=== PATIENT | female | born 1990 | race Caucasian/White ===

== ENCOUNTER 2025-04-16 18:04 | Emergency (ER) | payer BC, SELFPAY ==
[2025-04-16 18:06] VITALS: BP 140/70
[2025-04-16 18:12] VITALS: BMI 29.1
[2025-04-16 18:37] LABS: Hematocrit 39.7 % (37.0-47.0); Hemoglobin 13.2 g/dL (12.0-16.0); Mean Corp Hgb Conc. 33.2 g/dL (33.0-37.0); Mean Corpuscular Volume 86.7 fL (81.0-99.0); Nucleated Red Blood Cells % 0 %; Platelet Count 208 10^3/uL (130-400); Red Cell Dist. Width 12.0 % (11.5-14.5)
[2025-04-16] MEDS: TYLENOL 1000 MG PO (18:39)
[2025-04-16 19:23] LABS: ALT (SGPT) 19 U/L (0-35); AST (SGOT) 21 U/L (14-36); Albumin 4.7 g/dl (3.5-5.0); Alkaline Phosphatase 39 U/L (38-126); Blood Urea Nitrogen 16 mg/dl (7-17); Calcium 9.6 mg/dl (8.4-10.2); Carbon Dioxide 25 mmol/L (22-30); Chloride 102 mmol/L (98-107); Estimated Creatinine Clearance 81 ml/min; Glucose 85 mg/dl (70-99); Potassium 3.8 mmol/L (3.5-5.1); Sodium 133 mmol/L (135-145); Total Protein 7.4 g/dl (6.3-8.2); eGFR > 60.00
--- NOTE | 2025-04-16 19:23 | ED.GENMED ---
History of Present Illness
General
Chief Complaint: Problems
Time Seen by Provider: 04/16/25 18:23
History of Present Illness
History of Present Illness:
34-year-old female, G2, P1 currently 20 weeks gestational age presents to the emergency department for evaluation of lower abdominal pain that is gradually worsened throughout the day today. Constant pain, nonradiating, with no associated fever,
chills, or sweats. No vomiting or diarrhea. Denies any lower urinary tract voiding symptoms. Prior abdominal surgical history includes appendectomy. First was uneventful. She did already undergo a confirmation ultrasound confirming
[facility] within the past 2 to 3 weeks.
Past History
Past History
ED Past Medical History: None
Social History
Tobacco: Non-smoker
Alcohol: Occasional
Drug: None
Personal: Single
Living: with family
Employment: Employed
Review of Systems
Review of Systems
Allergies reviewed?: Yes
All Other Systems: ROS reviewed and negative except as documented in HPI and ROS
Phy Exam
Physical Exam
Physical Exam:
GEN: Well appearing, NAD, WDWN
HEENT: Oral mucosa moist, no scleral icterus
Cardiac: Regular rate
Lung: No respiratory distress, no tachypnea
Abdomen: Soft, mild right lower quadrant and suprapubic tenderness, no rigidity or peritoneal signs
MSK: No gross deformity or injuries
Skin: Good color, no pallor or jaundice, no rashes
Neuro: AO x3, moves all extremities freely
Psych: Calm, cooperative
Course
Orders/Labs/Results
Orders:
Orders
04/16/25 18:11
US 1st Trimester Urgent
Comment:
Reason For Exam: 12wks preg abd pain no vag blding
04/16/25 18:23
Complete Blood Count/With Diff Urgent
Comprehensive Metabolic Panel Urgent
HCG, Beta Quantitative [Beta HCG Quantitative] Urgent
Is this a screen?: No
04/16/25 18:37
Acetaminophen [Tylenol] 1,000 mg PO NOW STA
04/16/25 18:39
Acetaminophen [Tylenol] 1,000 mg .ROUTE .STK-MED ONE
04/16/25 19:28
Urinalysis Reflex To Culture Urgent
Date Specimen was Collected: 04/16/25
Time Specimen was Collected: :
Urine Microscopic Reflex Cult Urgent
Urine Culture Urgent
ISELA Source: U
Specimen Description:
Date Specimen was Collected: 04/16/25
Time Specimen was Collected: :
Abnormal Lab Results
04/16/25 04/16/25
18:23 19:28
Sodium 133 L mmol/L
(135-145)
Leukocyte Esterase Rfl 2+ A
(Negative)
04/16/25 18:23
04/16/25 18:23
Vital Signs
Initial and Last Documented VS:
Initial Vital Signs
Temp Pulse Resp BP Pulse Ox
98.0 F 62 16 140/70 98
04/16/25 18:06 04/16/25 18:06 04/16/25 18:06 04/16/25 18:06 04/16/25 18:06
Last Documented Vital Signs
Temp Pulse Resp BP Pulse Ox
98.0 F 62 16 140/70 98
04/16/25 18:06 04/16/25 18:06 04/16/25 18:06 04/16/25 18:06 04/16/25 19:24
Information
Weeks gestation: Weeks: (12)
Location: Location: ([facility])
MDM/Problems Addressed
MDM/Problems Addressed:
Patient's ultrasound is reassuring with good activity and good heart tones. Labs otherwise unremarkable. Urinalysis does have leukocytes however she has no lower urinary tract voiding symptoms thus we will hold off on antibiotics unless
urine culture is positive. No indication for further imaging at this time as Tylenol did greatly improve pain
*Pulse Oximetry
SaO2: 98
Oxygen Mode of Delivery: Room air
Patient hypoxic: no
*Critical Care Note
Total Time (30-74mins, 75-104mins- exclusive of procedures): Not Applicable
ED Attending Note
-
Portions of this chart may have been created with voice recognition software.� Occasional wrong word or��sound alike� substitutions may have occurred due to the inherent limitations of voice recognition software.
Discharge Plan
Departure
Patient Disposition: Home (Routine Discharge)
Date of Disposition: 04/16/25
Time of Disposition: 19:41
Patient with high blood pressure during this ER visit?: No
Discharge Problem:
Lower abdominal pain
Instructions: Threatened Miscarriage (DC)
Prescriptions:
No Action
Vitamin
1 tab PO DAILY
ibuprofen 600 mg Tablet
600 mg PO Q6HPRN PRN (Reason: moderate pain/cramps) Qty: 90 0RF
Referrals:
Anne Best, DO [Family Provider, Gynecology]
Activity Restrictions/Additional Instructions:
A miscarriage does not seem highly likely given your symptoms however cannot definitively be ruled out although ultrasound is reassuring. Your urine will be cultured and we will call you with any need for antibiotics within 48 hours
Interventions
Interventions:
*Risk Screen - Suicide Last Done: 04/16/25 18:06
*General Assessment Last Done: 04/16/25 18:06
*Neglect/Abuse Screening Last Done: 04/16/25 18:06
*ED COVID-19 Vaccine History Last Done: 04/16/25 18:06
*ED Influenza Vaccine History Last Done: 04/16/25 18:06
[facility] [place] Fall Risk Assessment Tool Last Done: 04/16/25 18:31
ED-Female Genitourinary Assessment Last Done: 04/16/25 18:13
Discharge Date and Time
Print Language: DIVEHI
[2025-04-16 19:38] LABS: Urine Character Clear (Clear)
[2025-04-16 19:53] LABS: Urine Red Blood Cell 0-2 /HPF (0-2); Urine Squamous Cell 21-25 /LPF (Few)
== END 2025-04-16 19:45 | disposition home or self-care (01) ==
LOC: EMR 18:04
PROVIDERS: Physician Assistant; EMERGENCY PHYSICIAN Emergency Medicine; FAMILY PHYSICIAN Obstetrics & Gynecology
DX: O26.891 Other specified pregnancy related conditions, first trimester (principal); R10.30 Lower abdominal pain, unspecified; O09.522 Supervision of elderly multigravida, second trimester; Z3A.10 10 weeks gestation of pregnancy
CPT/HCPCS: 99284; 76801; 80053; 81003; 81015; 84702; 85025; 87086

== ENCOUNTER → 2025-04-23 06:58 | Outpatient (REF) | payer BC, SELFPAY | LOC: PNTC 06:58 | PROVIDERS: ATTENDING PHYSICIAN Nurse Practitioner Family | DX: Z36.0 Encounter for antenatal screening for chromosomal anomalies (principal) | CPT/HCPCS: 76801; 76813 ==

== ENCOUNTER → 2025-05-04 13:09 | Outpatient (REF) | payer BC, SELFPAY | LOC: RAD 13:09 | PROVIDERS: ATTENDING PHYSICIAN Student in an Organized Health Care Education/Training Program | DX: O26.851 Spotting complicating pregnancy, first trimester (principal) | CPT/HCPCS: 76801 ==